=== PATIENT | female | born 1975 | race Caucasian/White ===

== ENCOUNTER 2019-12-29 09:51 | Outpatient (CLI) | payer BC ==
--- NOTE | 2019-12-29 10:12 | RAD ---
XR Cerv Sp Ap Lat STANDARD HISTORY: Neck pain FINDINGS: Degenerative changes are seen most prominent at C5-6 level. There is loss of cervical lordosis with s traightening of the cervical spine. No fracture, subluxation or bony destruction is seen. IMPRESSION: Cervical spondylosis
== END 2019-12-29 09:52 | disposition home or self-care (01) ==
LOC: BICRAD 09:51
PROVIDERS: ATTEND Internal Medicine
DX: M54.2 Cervicalgia (principal); M47.812 Spondylosis without myelopathy or radiculopathy, cervical region
CPT/HCPCS: 72040

== ENCOUNTER 2021-05-11 13:30 | Outpatient (CLI) | payer BC | END 2021-05-11 13:31 | disposition home or self-care (01) | LOC: BICMAMMO 13:30 | PROVIDERS: ATTEND Internal Medicine | DX: Z12.31 Encounter for screening mammogram for malignant neoplasm of breast (principal); Z80.3 Family history of malignant neoplasm of breast; Z98.82 Breast implant status | CPT/HCPCS: 77063; 77067 ==